=== PATIENT | male | born 1990 | race Caucasian/White ===

== ENCOUNTER 2019-11-09 14:35 | Emergency (ER) | payer MEDICAID ==
[~2019-11-09] VITALS: Ht 182.9 cm; Wt 135.8 kg
[2019-11-09] MEDS ORDERED: diphenhydrAMINE 25mg capsule PO ONE (15:40)
[2019-11-09] MEDS ORDERED: triamcinolone acetonide 40mg/ml inj IM ONE (15:40)
[2019-11-09 16:03] VITALS: BP 130/75
== END 2019-11-09 16:04 | disposition home or self-care (01) ==
LOC: ER 14:36
DX: L23.7 Allergic contact dermatitis due to plants, except food (principal)
CPT/HCPCS: 96372; 99283; J3301; Q0163

== ENCOUNTER 2023-12-28 10:29 | Emergency (ER) | payer MEDICAID ==
[~2023-12-28] VITALS: Ht 182.9 cm; Wt 140.5 kg
[2023-12-28] MEDS ORDERED: ketorolac trometh. 30mg/ml inj. IM ONE (12:10)
[2023-12-28] MEDS ORDERED: IBUP-1985 PO (12:12)
[2023-12-28] MEDS: ketorolac tromethamine 15mg/ml inj. IM ONE (12:19)
[2023-12-28 12:41] VITALS: BP 140/98; PULSE 70; RESP 18; TEMP 98.3; O2SAT 99
== END 2023-12-28 12:42 | disposition home or self-care (01) ==
LOC: ER 10:29
DX: M10.9 Gout, unspecified (principal); Z79.899 Other long term (current) drug therapy; Z91.048 Other nonmedicinal substance allergy status
CPT/HCPCS: 73630; 96372; 99283; J1885

== ENCOUNTER 2024-02-28 00:11 | Emergency (ER) | payer MEDICAID, OTHER ==
[~2024-02-28] VITALS: Ht 182.9 cm; Wt 145.4 kg
[~2024-02-28 00:11] MED LIST: IBUP-1985 PO
[2024-02-28 00:13] VITALS: RESP 20
[2024-02-28] MEDS ORDERED: ONDA8TAB13 PO (02:44)
[2024-02-28] MEDS ORDERED: CLIN150C2 PO (02:44)
[2024-02-28] MEDS: acetaminophen 325mg tablet PO ONE (02:51)
[2024-02-28] MEDS: clindamycin 150mg capsule PO ONE (02:51)
[2024-02-28] MEDS: ondansetron 4mg rapidly disintigrating tab PO ONE (02:51)
[2024-02-28 02:56] VITALS: BP 137/86; PULSE 85; O2SAT 97
[2024-02-28 03:02] VITALS: TEMP 98.1
== END 2024-02-28 03:03 | disposition home or self-care (01) ==
LOC: ER 00:12
DX: K08.89 Other specified disorders of teeth and supporting structures (principal); Z88.8 Allergy status to other drugs, medicaments and biological substances; Z79.1 Long term (current) use of non-steroidal anti-inflammatories (NSAID)
CPT/HCPCS: 99284

== ENCOUNTER 2025-02-01 21:24 | Emergency (ER) | payer BC ==
[~2025-02-01] VITALS: Ht 180.3 cm; Wt 145.9 kg
[~2025-02-01 21:24] MED LIST changes: +ONDA-245 PO
--- NOTE | 2025-02-01 21:39 | ELECTROCARDIOGRAPH REPORT ---
[facility] Test Date: 2025-02-01 Test Time: 21:37:11 Pat Name: TANISHA GUAN Department: EMERGENCY ROOM [id number] Room: Gender: M Infrastructure Technician: : 1990 Requested By: KEYANNA CHUNG Order Number: [id number] Reading MD: Dr. Farooq Gar Measurements Intervals [place] Rate: 123 P: 36 IA: 164 QRS: 94 QRSD: 89 T: -8 QT: 292 QTc: 418 Interpretive Statements Sinus tachycardia Borderline right axis deviation Borderline T abnormalities, inferior leads Electronically Signed On 02-10-2025 21:43:[address] Farooq Gar Please click the below link to view image of tracing.
[2025-02-01 21:44] LABS: BASOPHILS % (AUTO) 0.2 % (0-1); EOSINOPHILS # (AUTO) 0.2 X10'3 (0-0.9); HEMATOCRIT 43.4 % (42.0-52.0); HEMOGLOBIN 14.7 g/dl (14.0-17.9); LYMPHOCYTES # (AUTO) 2.2 X10'3 (1.1-4.8); LYMPHOCYTES % (AUTO) 22.9 % (21-51); MEAN CORPUSCULAR HEMOGLOBIN 28.7 PG (27.0-31.0); MEAN CORPUSCULAR HGB CONC 33.8 g/dL (33.0-36.5); MEAN CORPUSCULAR VOLUME 84.8 FL (78-98); MEAN PLATELET VOLUME 7.7 FL (7.4-10.4); MONOCYTES # (AUTO) 0.8 X10'3 (0-0.9); MONOCYTES % (AUTO) 8.7 % (2-12); NEUTROPHILS # (AUTO) 6.3 X10'3 (1.8-7.7); NEUTROPHILS % (AUTO) 66.2 % (42-75); PLATELET COUNT 312 X10'3 (140-440); RED BLOOD COUNT 5.12 X10'6 (4.70-6.10); RED CELL DISTRIBUTION WIDTH 13.5 % (11.5-14.5); WHITE BLOOD COUNT 9.5 X10'3 (4.5-11.0)
[2025-02-01 22:01] LABS: ALANINE AMINOTRANSFERASE 24 U/L (12-78); ALBUMIN 3.9 G/DL (3.4-5.0); ALBUMIN/GLOBULIN RATIO 1.2 (1.1-1.5); ALKALINE PHOSPHATASE 116 IU/L (46-116); ANION GAP 8 (8-16); ASPARTATE AMINO TRANSFERASE 15 U/L (10-37); BILIRUBIN,TOTAL 0.3 MG/DL (0.1-1.0); BLOOD UREA NITROGEN 17 MG/DL (7-18); BUN/CREATININE RATIO 20.5 (10.0-20.0); CALCIUM 8.8 MG/DL (8.5-10.1); CHLORIDE 104 MMOL/L (99-107); CREATININE 0.83 MG/DL (0.60-1.10); GLUCOSE 143 MG/DL (70-104); POTASSIUM 3.9 MMOL/L (3.5-5.1); SODIUM 140 MMOL/L (135-145); TOTAL CARBON DIOXIDE 27.8 MMOL/L (24-32); TOTAL PROTEIN 7.1 G/DL (6.4-8.2); eCRCL 131 ML/MIN; eGFR > 90 ML/MIN
[2025-02-01 22:14] LABS: PRO BRAIN NATRIURETIC PEPTIDE < 30 PG/ML (0-125)
--- NOTE | 2025-02-01 23:44 | RADIOLOGY REPORT ---
Clinical History CP Comparison None Technique: frontal chest x-ray Without Contrast TANISHA GUAN, [id number] Findings: Heart - normal lungs - no consolidation. bones - no acute fracture. Other- Impression: 1. No acute cardiopulmonary disease This report was electronically signed by Rita Mcmillan MD on 02/01/2025 11:41:31 PM.
--- NOTE | 2025-02-02 00:35 | Physician Documentation ---
History of Present Illness ~ Chief Complaint: Chest Pain Stated Complaint: CHEST PAIN X3 WEEKS Time Seen by MD: 00:27 Primary Medical Doctor: SHANNON Mode of Arrival: POV HPI Patient presents to the emergency room with one month history of left-sided chest pain. Patient decided to come in tonight because it became sharp in nature. Symptoms are intermittent. He denies exacerbation with activity however he does state that it seems to act up when he is being stressed out by his children. Patient does not smoke but does have high blood pressure. He denies history of diabetes or hyperlipidemia. He denies first-degree relative with heart disease. He denies one-sided leg pain. No current pain. Medication Reconciliation Allergies: Coded Allergies: poison oak extract (Unverified Allergy, Unknown, 02/28/24) Scheduled Ibuprofen (Ibuprofen), 1 TAB PO Q6H Ondansetron 8mg ODT (Ondansetron Odt), 1 TAB PO Q6H Past Medical History Past Medical History: *RENAL/* Past Surgical History: noncontributory Alcohol Use: None Drug Use: none Review of Systems ROS All review of systems negative except as per HPI Physical Exam Vital Signs: Temperature: 98.4, Heart Rate: 110, Respiratory Rate: 16, BP: 144/91, Pulse Oximetry: 95, Weight: 145.900 Oxygen Flow Rate: 0 Physical Exam General: Patient is awake, alert, oriented x4 in no acute distress and well appearing.~ Head: Normocephalic and atraumatic. Eyes: Conjunctival normal. EOMI. PERRL. ENT: Mucous membranes moist. Neck: Supple, trachea is midline. Chest: Clear to auscultation bilaterally without rales, rhonchi, or wheezes. There is no accessory muscle use or retractions. Cardiac: Heart rate 94 and regular without murmurs, gallops, or rubs. Extremities: Normal strength. Normal range of motion. No deformities or edema. No calf tenderness to palpation Progress Results/Orders Results/Orders Orders - STEPHANE ZHOU MD Chest,Single View (02/01/25 21:55) Monitor (02/01/25 21:30) Saline Lock (02/01/25 21:30) Oxygen (02/01/25 21:30) Completed Orders - STEPHANE ZHOU MD Chest,Single View (02/01/25 21:55) Cbc/Diff (02/01/25 21:30) PBNP (02/01/25 21:30) Electrocardiogram (02/01/25 21:30) CMP (02/01/25 21:30) Hs Troponin I W Calculations (02/01/25 21:30) Hs Troponin I W Calculations (02/01/25 23:30) Hs Troponin I W Calculations (02/02/25 00:30) Vital Signs 02/01/25 02/01/25 02/02/25 21:27 23:18 00:50 Temp 98.4 98.4 Pulse 110 95 Resp 16 19 B/P (MAP) 144/91 121/70 (87) Pulse Ox 95 98 O2 Flow Rate 0 0 Laboratory Tests Test 02/01/25 21:38 02/01/25 23:16 02/02/25 00:21 White Blood Count 9.5 Red Blood Count 5.12 Hemoglobin 14.7 Hematocrit 43.4 Mean Corpuscular Volume 84.8 Mean Corpuscular Hemoglobin 28.7 Mean Corpuscular Hemoglobin Concent 33.8 Red Cell Distribution Width 13.5 Platelet Count 312 Mean Platelet Volume 7.7 Neutrophils (%) (Auto) 66.2 Lymphocytes (%) (Auto) 22.9 Monocytes (%) (Auto) 8.7 Eosinophils (%) (Auto) 2.0 Basophils (%) (Auto) 0.2 Neutrophils # (Auto) 6.3 Lymphocytes # (Auto) 2.2 Monocytes # (Auto) 0.8 Eosinophils # (Auto) 0.2 Basophils # (Auto) 0.0 CBC Comment Sodium Level 140 Potassium Level 3.9 Chloride Level 104 Carbon Dioxide Level 27.8 Anion Gap 8 Blood Urea Nitrogen 17 Creatinine 0.83 Estimated GFR/1.73 m2 > 90 BUN/Creatinine Ratio 20.5 H Glucose Level 143 H Calcium Level 8.8 Total Bilirubin 0.3 Aspartate Amino Transf (AST/SGOT) 15 Alanine Aminotransferase (ALT/SGPT) 24 Alkaline Phosphatase 116 Troponin I High Sensitivity 6 5 5 Pro-B-Type Natriuretic Peptide < 30 Total Protein 7.1 Albumin 3.9 Globulin 3.2 Albumin/Globulin Ratio 1.2 Chemistry Comments Troponin I High Sens Percent Delta 16 0 Troponin I Hi Sens Absolute Change -1 0 EKG/XRAY/CT/US/VASC/MRI EKG : Additional Comment EKG interpreted by myself shows time of 10/12/2036, rate 123, sinus tachycardia, normal axis, no ST changes Chest X-Ray : Additional Comments Exam: CHEST,SINGLE VIEW Clinical History CP Comparison None Technique: frontal chest x-ray Without Contrast TANISHA GUAN, [id number] Findings: Heart - normal lungs - no consolidation. bones - no acute fracture. Other- Impression: 1. No acute cardiopulmonary disease This report was electronically signed by Rita Mcmillan MD on 02/01/2025 11:41:31 PM. Medical Decision Making Findings Patient presents to the emergency room for evaluation of chest pain. Differentials include but are not limited to ACS, aortic pathology, pulmonary embolism, musculoskeletal pain therefore emergent labs and imaging indicated. Labs reassuring for troponins negative x3. Chest x-ray reassuring. Patient with a heart score of one. Chest pain is atypical in nature. I have considered alternative diagnosis such as pulmonary embolism however no calf tenderness and although patient did demonstrate tachycardia upon arrival there was no tachycardia during my exam. No hypoxia. No current symptoms and I do not feel he requires investigation into possible pulmonary embolism or acute aortic pathology. Unknown cause for patient's chest pain. The need to follow up with his doctor discussed as well as ER precautions. Heart Score: 1 Departure Disposition: HOME / SELF CARE / HOMELESS Impression: Primary Impression: Chest pain Condition: Stable Discharge Instructions: Nonspecific Chest Pain, Adult Referrals: NO PRIMARY CARE PROVIDER (PCP) Education Educated: Patient Educated regarding: diagnosis, treatment, need for follow up Signature Scribe Signature: No scribe Attestation: The note accurately reflects work and decisions made by me.Stephane Zhou MD 02/02/25 00:59 STEPHANE ZHOU MD February 02, 2025 00:35
[2025-02-02 00:50] VITALS: BP 121/70; PULSE 95; RESP 19; TEMP 98.4; O2SAT 98
== END 2025-02-02 01:02 | disposition home or self-care (01) ==
LOC: ER 21:25
DX: R07.89 Other chest pain (principal); Z79.899 Other long term (current) drug therapy
CPT/HCPCS: 36415; 71045; 80053; 83880; 84484; 85025; 93005; 99285